=== PATIENT | male | born 1990 | race Caucasian/White ===

== ENCOUNTER → 2024-01-30 08:21 | Outpatient (CLI) | payer OTHER, SELFPAY ==
--- NOTE | 2024-01-30 08:28 | DI.RAD.S_ITS ---
PROCEDURE: XR NASAL BONES MIN 3V INDICATIONS: deviated septum TECHNIQUE: 2 views of the nasal bones acquired. COMPARISON: None. FINDINGS: Bones: No fractures or dislocations. The nasal septum is slightly deviated to the left. Normal nasociliary nerve grooves are noted. Soft tissues: No suspicious soft tissue calcifications. IMPRESSION: Slight leftward deviation of the nasal septum. Dictated by: Denisse Ramon M.D. on 01/30/2024 at 12:15 Approved by: Denisse Ramon M.D. on 01/30/2024 at 12:20
== END ==
LOC: RAD 08:26
PROVIDERS: Referring Provider Chiropractor; Visit Provider Chiropractor
DX: J34.2 Deviated nasal septum (principal)
CPT/HCPCS: 70160